=== PATIENT | male | born 1990 | race African-American/Black ===

== ENCOUNTER 2016-11-08 00:51 | Emergency (ER) | payer OTHER ==
[~2016-11-08] VITALS: Ht 180.3 cm; Wt 122.5 kg
[2016-11-08 01:05] VITALS: BP 134/77
[2016-11-08] MEDS ORDERED: IV NORMAL SALINE 1000ML BAG 1,000 ML IV ONE (01:15)
[2016-11-08] MEDS ORDERED: ONDANSETRON PF 4 MG/2 ML VIAL. IV ONE (01:15)
[2016-11-08 01:38] LABS: CALCIUM 9.7 mg/dL (8.5-10.1); CREATININE 1.1 mg/dL (0.7-1.3); GFR 97.2; POTASSIUM 4.2 mmol/L (3.5-5.1)
[2016-11-08] MEDS ORDERED: ONDA4TAB10 SL (02:11)
--- NOTE | 2016-11-08 02:11 | PHYS DOC ---
Past Medical History Past Medical History: Asthma Past Surgical History: No Surgical History Alcohol Use: Occasionally Drug Use: None Adult General Chief Complaint Chief Complaint: NAUSEA/VOMITING/DIARRHA HPI HPI Patient is a 26 year old male who presents with vomiting & diarrhea. The patient reports onset of symptoms this evening. He states he has had 6 episodes of vomiting & too many episodes of diarrhea to count. He reports generalized abdominal discomfort. Denies fevers/chills, hematemesis, hematochezia/melena, dysuria/hematuria. No abdominal surgeries. Other family members have had similar symptoms. Does not have a PCP. Review of Systems Review of Systems Constitutional: Denies fever or chills Eyes: Denies change in visual acuity HENT: Denies nasal congestion or sore throat Respiratory: Denies cough or shortness of breath Cardiovascular: Denies chest pain or edema GI: Denies abdominal pain, nausea, vomiting, bloody stools or diarrhea : Denies dysuria or hematuria Musculoskeletal: Denies back pain or joint pain Integument: Denies rash or skin lesions Neurologic: Denies headache, focal weakness or sensory changes Current Medications Current Medications Current Medications Medications (Trade) Dose Ordered Sig/Aileen Start Time Stop Time Status Last Admin Dose Admin Ondansetron HCl (Zofran) 4 mg 1X ONCE 11/08/16 01:15 11/08/16 01:16 DC 11/08/16 01:20 4 MG Sodium Chloride 1,000 ml @ 1,000 mls/hr 1X ONCE 11/08/16 01:15 11/08/16 02:14 DC 11/08/16 01:15 1,000 MLS/HR Allergies Allergies Allergies Coded Allergies Type Severity Reaction Last Updated Verified cyclobenzaprine Allergy Unknown 11/08/16 Yes Physical Exam Physical Exam Constitutional: obese, no acute distress, non-toxic appearance. HENT: Normocephalic, atraumatic, bilateral external ears normal, oropharynx dry , nose normal. Eyes: conjunctiva normal, no discharge. Neck: supple, no stridor. Cardiovascular: RRR, no murmurs, no edema. Lungs & Thorax: LCTAB, no wheezing, no respiratory distress. Abdomen: hyperactive bowel sounds, soft, no focal tenderness with palpation, no masses or pulsatile masses, no rebound/guarding, nondistended. Skin: Warm, dry, no erythema, no rash. Back: No CVA tenderness. Extremities: No tenderness, no edema. Neurologic: Alert and oriented X 3, no focal deficits noted. Psychologic: Affect normal, judgement normal, mood normal. Current Patient Data Vital Signs Vital Signs Date Time Temp Pulse Resp B/P (MAP) Pulse Ox O2 Delivery O2 Flow Rate FiO2 11/08/16 01:05 99.3 90 22 134/77 (96) 99 Room Air 99.3 Lab Values Laboratory Tests Test 11/08/16 01:15 Sodium Level 139 mmol/L (136-145) Potassium Level 4.2 mmol/L (3.5-5.1) Chloride Level 103 mmol/L (98-107) Carbon Dioxide Level 28 mmol/L (21-32) Anion Gap 8 (6-14) Blood Urea Nitrogen 17 mg/dL (8-26) Creatinine 1.1 mg/dL (0.7-1.3) Estimated GFR (Cockcroft-Gault) 97.2 Glucose Level 100 mg/dL (70-99) H Calcium Level 9.7 mg/dL (8.5-10.1) Laboratory Tests 11/08/16 01:15 EKG EKG [] Radiology/Procedures Radiology/Procedures [] Course & Med Decision Making Course & Med Decision Making Pertinent Labs and Imaging studies reviewed. (See chart for details) Patient presents with vomiting & diarrhea, nontender abdomen, stable vitals. Gave IV fluids & zofran. BMP shows no significant abnormality. Recommend supportive care for viral illness - rest, PO hydration with clear liquids, tylenol or ibuprofen for pain or fever, zofran for nausea, immodium for diarrhea. Follow up as needed with primary care if not improving in 2-3 days. Return to the emergency department for high fever, severe pain, uncontrolled vomiting, any otherwise worsening condition. [] Dragon Disclaimer Dragon Disclaimer This electronic medical record was generated, in whole or in part, using a voice recognition dictation system. Departure Departure Impression: Primary Impression: Nausea vomiting and diarrhea Disposition: HOME, SELF-CARE Condition: STABLE Referrals: NO PCP (PCP) MARTHA ABURTO MD Patient Instructions: Diarrhea, [id number], Nausea and Vomiting, [id number] Additional Instructions: You were seen in the emergency department today for vomiting and diarrhea. Labs were normal here. This is likely caused by a virus and should improve within the next few days. Take Zofran for nausea. Take Imodium as needed for diarrhea. You can buy this [id number]. Drink small sips of clear liquids like water or Gatorade to stay hydrated. Follow-up with primary care doctor in 2-3 days. Return to the emergency department for severe abdominal pain, uncontrolled vomiting, any otherwise worsening condition. Scripts Ondansetron (ZOFRAN ODT) 4 Mg Tab.rapdis 1 TAB SL Q8HRS Y for NAUSEA, #10 TAB Prov: EMIR PLUNKETT MD 11/08/16 EMIR PLUNKETT MD Nov 08, 2016 02:11
[2016-11-08] MEDS ORDERED: METR500T PO (18:35)
[2016-11-08] MEDS ORDERED: PROM25TA10 PO (18:35)
[2016-11-08] MEDS ORDERED: DIPH1TAB PO (18:35)
[2016-11-08] MEDS ORDERED: CIPR500T94 PO (18:35)
== END 2016-11-08 02:29 | disposition home or self-care (01) ==
LOC: ER 00:51
DX: R11.2 Nausea with vomiting, unspecified (principal); R19.7 Diarrhea, unspecified; R10.84 Generalized abdominal pain; J45.909 Unspecified asthma, uncomplicated; Z88.8 Allergy status to other drugs, medicaments and biological substances
CPT/HCPCS: 36415; 80048; 96361; 96374; 99284; J2405; J7030

== ENCOUNTER 2016-11-08 14:37 | Emergency (ER) | payer OTHER ==
[~2016-11-08] VITALS: Ht 180.3 cm; Wt 122.5 kg
[~2016-11-08 14:37] MED LIST: ONDA4TAB10 SL
[2016-11-08] MEDS ORDERED: PROMETHAZINE 12.5 MG in IV NORMAL SALINE 50ML 50 ML IV ONE (16:00)
[2016-11-08] MEDS ORDERED: ONDANSETRON PF 4 MG/2 ML VIAL. IV ONE ×2 (16:00→18:15)
[2016-11-08] MEDS ORDERED: IV NORMAL SALINE 1000ML BAG 1,000 ML IV ONE (16:00)
[2016-11-08] MEDS ORDERED: IOHEXOL 300 MG/ML 75 ML VIAL IV ONE (16:00)
[2016-11-08] MEDS ORDERED: CONTRAST GIVEN MC PRN (16:15)
[2016-11-08 16:18] LABS: BASO % 0 % (0-3); EOS % 0 % (0-3); HEMATOCRIT 42.6 % (39.0-53.0); HEMOGLOBIN 14.5 g/dL (13.0-17.5); LYMPH % 10 % (24-48); MEAN CORPUSCULAR HEMOGLOBIN 29 pg (25-35); MEAN CORPUSCULAR HGB CONC 34 g/dL (31-37); MEAN CORPUSCULAR VOLUME 86 fL (79-100); MONO % 10 % (0-9); NEUT % 80 % (31-73); PLATELET COUNT 327 x10^3/uL (140-400); RED BLOOD COUNT 4.94 x10^6/uL (4.30-5.70); WHITE BLOOD COUNT 10.6 x10^3/uL (4.0-11.0)
[2016-11-08 16:40] LABS: CALCIUM 9.2 mg/dL (8.5-10.1); GFR 108.5; POTASSIUM 3.9 mmol/L (3.5-5.1)
[2016-11-08 16:46] LABS: ALBUMIN 3.6 g/dL (3.4-5.0); TOTAL BILIRUBIN 0.7 mg/dL (0.2-1.0); TOTAL PROTEIN 7.2 g/dL (6.4-8.2)
--- NOTE | 2016-11-08 17:02 | RAD ---
Indication abdominal pain nausea vomiting and diarrhea. Axial images through the abdomen and pelvis were obtained. Approximately 75 cc of Omnipaque 300 was administered intravenously. No oral contrast was administered. No prior CT imaging of the abdomen or pelvis is available. The lung bases are clear. The liver and spleen appear unremarkable. The gallbladder appears grossly normal. No pancreatic abnormality is seen. There is a 1.5 cm mass in the midportion of the right kidney. There is an additional low-density 1 cm mass medially in the right kidney. These are not not fully characterized on this exam but likely reflect cysts. They could be further characterized with nonemergent ultrasound. No adrenal pathology is seen and the left kidney appears unremarkable. There is slight dilatation of small bowel loops in the right lower quadrant. This is a nonspecific finding. It could reflect enteritis. High-grade mechanical obstruction is not suggested on this exam. The appendix is not definitely seen in the right lower quadrant but secondary signs to suggest appendicitis are not apparent. A definite acute finding in the pelvis is not seen. There are scattered lymph nodes in the mesentery and retroperitoneum which are nonspecific but likely incidental. IMPRESSION: Mild dilatation of small bowel loops. This is nonspecific but could reflect enteritis. No additional definite significant finding seen. Small masses in the right kidney probably reflecting cysts.
[2016-11-08 17:32] LABS: BILIRUBIN,URINE NEGATIVE (NEG); GLUCOSE,URINE NEGATIVE (NEG); NITRITE,URINE NEGATIVE (NEG); PROTEIN,URINE NEGATIVE (NEG-TRACE); UROBILINOGEN,URINE 0.2 mg/dL (0.2 mg/dL)
[2016-11-08 17:38] LABS: BARBITURATES NEG (NEG); BENZODIAZEPINES NEG (NEG); CANNABINOIDS NEG (NEG); COCAINE NEG (NEG); METHADONE NEG (NEG); OPIATES NEG (NEG); PHENCYCLIDINE NEG (NEG)
[2016-11-08 17:40] LABS: BACTERIA,URINE 0 /HPF (0-FEW); RBC,URINE OCC /HPF (0-2); WBC,URINE OCC /HPF (0-4)
[2016-11-08 17:41] LABS: SQUAMOUS EPITHELIAL CELL,UR OCC /LPF
[2016-11-08 18:30] VITALS: BP 121/82
[2016-11-08] MEDS ORDERED: METR500T PO (18:35)
[2016-11-08] MEDS ORDERED: PROM25TA10 PO (18:35)
[2016-11-08] MEDS ORDERED: CIPR500T94 PO (18:35)
[2016-11-08] MEDS ORDERED: DIPH1TAB PO (18:35)
--- NOTE | 2016-11-08 18:35 | PHYS DOC ---
Past Medical History Past Medical History: Asthma Past Surgical History: No Surgical History Alcohol Use: Occasionally Drug Use: None Adult General Chief Complaint Chief Complaint: ABDOMINAL PAIN HPI HPI Patient is a 26 year old male with history of asthma who presents today with diarrhea nausea and vomiting that began yesterday. Patient is also complaining of mild mid epigastric abdominal pain. Patient states he was seen in the ED early this morning. He states he was discharged around 2 AM. He states he was given a prescription for Zofran which he did not fill it. Patient is in the ED with the significant other who states she gave patient a pediatric dose of nausea medicine. Patient states he has continued to vomit and have diarrhea since last night. Review of Systems Review of Systems Constitutional: Denies fever or chills [] Eyes: Denies change in visual acuity, redness, or eye pain [] HENT: Denies nasal congestion or sore throat [] Respiratory: Denies cough or shortness of breath [] Cardiovascular: No additional information not addressed in HPI [] GI: mid epigastric, abdominal pain, nausea, vomiting, and diarrhea [] : Denies dysuria or hematuria [] Musculoskeletal: Denies back pain or joint pain [] Integument: Denies rash or skin lesions [] Neurologic: Denies headache, focal weakness or sensory changes [] Endocrine: Denies polyuria or polydipsia [] Current Medications Current Medications Current Medications Medications (Trade) Dose Ordered Sig/Aileen Start Time Stop Time Status Last Admin Dose Admin Info (Do NOT chart on this entry -- for MONITORING) 1 each PRN DAILY PRN 11/08/16 16:15 11/08/16 18:48 DC Iohexol (Omnipaque 300 Mg/ml) 75 ml 1X ONCE 11/08/16 16:00 11/08/16 16:01 DC 11/08/16 16:15 75 ML Ondansetron HCl (Zofran) 4 mg 1X ONCE 11/08/16 18:15 11/08/16 18:16 DC 11/08/16 18:27 4 MG Promethazine HCl 12.5 mg/Sodium Chloride 50.5 ml @ 101 mls/hr 1X ONCE 11/08/16 16:00 11/08/16 16:29 DC 11/08/16 16:09 101 MLS/HR Sodium Chloride 1,000 ml @ 1,000 mls/hr 1X ONCE 11/08/16 16:00 11/08/16 16:59 DC 11/08/16 16:08 1,000 MLS/HR Allergies Allergies Allergies Coded Allergies Type Severity Reaction Last Updated Verified cyclobenzaprine Allergy Unknown 11/08/16 Yes Physical Exam Physical Exam Constitutional: Well developed, well nourished, no acute distress, non-toxic appearance. [] HENT: Normocephalic, atraumatic, bilateral external ears normal, oropharynx moist, no oral exudates, nose normal. [] Eyes: PERRLA, EOMI, conjunctiva normal, no discharge. [] Neck: Normal range of motion, no tenderness, supple, no stridor. [] Cardiovascular:Heart rate regular rhythm, no murmur [] Lungs & Thorax: Bilateral breath sounds clear to auscultation [] Abdomen: Rounded abdomen. Bowel sounds normal, soft, no tenderness, no masses, no pulsatile masses. [] Skin: Warm, dry, no erythema, no rash. [] Back: No tenderness, no CVA tenderness. [] Extremities: No tenderness, no cyanosis, no clubbing, ROM intact, no edema. [] Neurologic: Alert and oriented X 3, normal motor function, normal sensory function, no focal deficits noted. [] Psychologic: Affect normal, judgement normal, mood normal. [] Current Patient Data Vital Signs Vital Signs Date Time Temp Pulse Resp B/P (MAP) Pulse Ox O2 Delivery O2 Flow Rate FiO2 11/08/16 18:30 85 18 121/82 (95) 96 Room Air 11/08/16 15:11 99.3 99.3 Lab Values Laboratory Tests Test 11/08/16 16:04 11/08/16 17:15 White Blood Count 10.6 x10^3/uL (4.0-11.0) Red Blood Count 4.94 x10^6/uL (4.30-5.70) Hemoglobin 14.5 g/dL (13.0-17.5) Hematocrit 42.6 % (39.0-53.0) Mean Corpuscular Volume 86 fL (79-100) Mean Corpuscular Hemoglobin 29 pg (25-35) Mean Corpuscular Hemoglobin Concent 34 g/dL (31-37) Red Cell Distribution Width 13.0 % (11.5-14.5) Platelet Count 327 x10^3/uL (140-400) Neutrophils (%) (Auto) 80 % (31-73) H Lymphocytes (%) (Auto) 10 % (24-48) L Monocytes (%) (Auto) 10 % (0-9) H Eosinophils (%) (Auto) 0 % (0-3) Basophils (%) (Auto) 0 % (0-3) Neutrophils # (Auto) 8.5 x10^3uL (1.8-7.7) H Lymphocytes # (Auto) 1.0 x10^3/uL (1.0-4.8) Monocytes # (Auto) 1.0 x10^3/uL (0.0-1.1) Eosinophils # (Auto) 0.0 x10^3/uL (0.0-0.7) Basophils # (Auto) 0.0 x10^3/uL (0.0-0.2) Sodium Level 140 mmol/L (136-145) Potassium Level 3.9 mmol/L (3.5-5.1) Chloride Level 104 mmol/L (98-107) Carbon Dioxide Level 28 mmol/L (21-32) Anion Gap 8 (6-14) Blood Urea Nitrogen 14 mg/dL (8-26) Creatinine 1.0 mg/dL (0.7-1.3) Estimated GFR (Cockcroft-Gault) 108.5 BUN/Creatinine Ratio 14 (6-20) Glucose Level 88 mg/dL (70-99) Calcium Level 9.2 mg/dL (8.5-10.1) Total Bilirubin 0.7 mg/dL (0.2-1.0) Aspartate Amino Transferase (AST) 24 U/L (15-37) Alanine Aminotransferase (ALT) 44 U/L (16-63) Alkaline Phosphatase 75 U/L (46-116) Total Protein 7.2 g/dL (6.4-8.2) Albumin 3.6 g/dL (3.4-5.0) Albumin/Globulin Ratio 1.0 (1.0-1.7) Lipase 96 U/L (73-393) Ethyl Alcohol Level < 10 mg/dL (0-10) Urine Collection Type Unknown Urine Color Yellow Urine Clarity Clear Urine pH 6.0 Urine Specific [place] >=1.030 Urine Protein Negative mg/dL (NEG-TRACE) Urine Glucose (UA) Negative mg/dL (NEG) Urine Ketones (Stick) Negative mg/dL (NEG) Urine Blood Trace (NEG) Urine Nitrite Negative (NEG) Urine Bilirubin Negative (NEG) Urine Urobilinogen Dipstick 0.2 mg/dL (0.2 mg/dL) Urine Leukocyte Esterase Negative (NEG) Urine RBC Occ /HPF (0-2) Urine WBC Occ /HPF (0-4) Urine Squamous Epithelial Cells Occ /LPF Urine Bacteria 0 /HPF (0-FEW) Urine Mucus Slight /LPF Urine Opiates Screen Neg (NEG) Urine Methadone Screen Neg (NEG) Urine Barbiturates Neg (NEG) Urine Phencyclidine Screen Neg (NEG) Urine Amphetamine/Methamphetamine Neg (NEG) Urine Benzodiazepines Screen Neg (NEG) Urine Cocaine Screen Neg (NEG) Urine Cannabinoids Screen Neg (NEG) Urine Ethyl Alcohol Neg (NEG) Laboratory Tests 11/08/16 16:04 Laboratory Tests 11/08/16 16:04 EKG EKG [] Radiology/Procedures Radiology/Procedures [] Course & Med Decision Making Course & Med Decision Making Pertinent Labs and Imaging studies reviewed. (See chart for details) This is a 26-year-old male patient who presents to the ED with nausea vomiting diarrhea and midepigastric abdominal pain since yesterday. He was seen in the ED of these this morning and discharged with Zofran. Patient states he has continued to have symptoms. He did not fill the prescription for Zofran. He states the girlfriend and interactive dose of nausea medicine. CBC with normal WBC. CMP would not acute findings, drug screen is negative. Urine analysis is negative for infection but shows patient is dehydrated. CT of the abdomen and pelvic is positive for enteritis. I offered patient admission to the hospital considering he is returning with the same symptoms. He declined admission. He was hydrated in the ED. He was discharged with Cipro Flagyl promethazine and he also has a prescription for Zofran. We did provide him a funeral driver for follow-up. I gave him a prescription for Lomotil. Stool was sent to lab for culture. He is to follow-up with his own doctor or the provided doctor as soon as he can. Instructed him to push fluids and maintain good hand hygiene at home. Dragon Disclaimer Dragon Disclaimer This electronic medical record was generated, in whole or in part, using a voice recognition dictation system. Departure Departure Impression: Primary Impression: Enteritis Disposition: 01 HOME, SELF-CARE Condition: STABLE Referrals: NO PCP (PCP) JILLIAN MILLER MD Follow-up with your primary care doctor or the provided funeral driver in 1 to 3 days Patient Instructions: Diarrhea, Nausea and Vomiting Additional Instructions: You were seen with nausea vomiting and diarrhea. We prescribed antibiotics to you. Take them as ordered. Take the nausea and vomiting medicines as needed. Take the diarrhea medicine, Lomotil as needed. Push fluids and maintain very good hand hygiene at home. We provided you a doctor for follow-up, try and call them as soon you can and set up a follow-up appointment or you can call your primary care doctor. Come back to the emergency room if symptoms worsen. Scripts Promethazine Hcl (PROMETHAZINE HCL) 25 Mg Tablet 1 TAB PO PRN Q6HRS, #20 TAB Prov: TAI LAZO APRN 11/08/17 Diphenoxylate Hcl/Atropine (LOMOTIL TABLET) 1 Each Tablet 1 TAB PO TID Y for DIARRHEA, #30 TAB Prov: TAI LAZO APRN 11/08/17 Ciprofloxacin Hcl (CIPRO) 500 Mg Tablet 1 TAB PO BID, #20 TAB Prov: TAI LAZO APRN 6/5/17 Metronidazole (FLAGYL) 500 Mg Tablet 500 MG PO TID, #30 TAB Prov: TAI LAZO APRN 17 TAI LAZO APRN Nov 08, 2016 18:35
== END 2016-11-08 18:47 | disposition home or self-care (01) ==
LOC: ER 14:37
DX: K52.9 Noninfective gastroenteritis and colitis, unspecified (principal); J45.909 Unspecified asthma, uncomplicated; Z88.8 Allergy status to other drugs, medicaments and biological substances
CPT/HCPCS: 36415; 74177; 80053; 80305; 80320; 81001; 83690; 85027; 96365; 96375; 96376; 99285; J2405; J2550; J7030; Q9967; G0480; G0481

== ENCOUNTER → 2016-12-29 | Outpatient (CLI) | payer OTHER ==
[~2016-12-29] MED LIST changes: +CIPR500T94 PO; +DIPH1TAB PO; +METR500T PO; +PROM25TA10 PO
--- NOTE | 2016-12-29 14:58 | KCIC ---
RENAL SONOGRAPHY INDICATIONS: right kidney nodule seen on CT study. COMPARISON: None currently available. Previous study was performed at [facility] dated November 08, 2016. FINDINGS: Longitudinal and AP and transverse dimensions of the right kidney are 12.0 cm and 5.4 cm and 6.9 cm respectively. The longitudinal and AP and transverse dimensions of the left kidney are 11.5 cm and 7.0 cm and 5.1 cm respectively. There is a cyst of the mid aspect of the right kidney measuring 15 mm. There is a cyst of the lower pole of the right kidney measuring 16 mm. No left renal mass is seen. No hydronephrosis or perinephric fluid collection is seen on either side. The urinary bladder is mildly distended. No intraluminal echodensities or masses are seen. IMPRESSION: Right renal cysts. No hydronephrosis. Electronically signed by: Gideon Lindo MD (12/29/2016 2:55 PM) [id number]
== END | disposition home or self-care (01) ==
LOC: KCIC US 09:54
PROVIDERS: ATTEND Internal Medicine Gastroenterology
DX: N28.1 Cyst of kidney, acquired (principal)
CPT/HCPCS: 76770

== ENCOUNTER 2018-04-03 09:47 | Emergency (ER) | payer OTHER ==
[~2018-04-03] VITALS: Ht 180.3 cm; Wt 127.0 kg
[2018-04-03] MEDS ORDERED: ONDANSETRON PF 4 MG/2 ML VIAL. IV ONE (10:30)
[2018-04-03] MEDS ORDERED: FAMOTIDINE 20 MG/2 ML VIAL IVP ONE (10:30)
[2018-04-03] MEDS ORDERED: IV NORMAL SALINE 1000ML BAG 1,000 ML IV ONE ×2 (10:30→11:45)
[2018-04-03 10:43] LABS: BILIRUBIN,URINE NEGATIVE (NEG); CLARITY,URINE CLEAR; COLOR,URINE YELLOW; NITRITE,URINE NEGATIVE (NEG); PROTEIN,URINE NEGATIVE (NEG-TRACE)
[2018-04-03] MEDS ORDERED: ACETAMINOPHEN 500 MG TABLET PO ONE (10:45)
[2018-04-03 10:46] LABS: BARBITURATES NEG (NEG); BENZODIAZEPINES NEG (NEG); CANNABINOIDS NEG (NEG); COCAINE NEG (NEG); METHADONE NEG (NEG); OPIATES NEG (NEG); PHENCYCLIDINE NEG (NEG)
[2018-04-03 10:47] LABS: AMPHETAMINE/METHAMPHETAMINE NEG (NEG)
[2018-04-03 11:09] LABS: BACTERIA,URINE 0 /HPF (0-FEW); SQUAMOUS EPITHELIAL CELL,UR OCC /LPF; WBC,URINE 0 /HPF (0-4)
--- NOTE | 2018-04-03 11:11 | RAD ---
History: Abdominal pain and constipation since previous day. Comparison: CT abdomen pelvis November 08, 2016. Findings: AP portable supine abdomen radiograph. Bowel gas pattern is nonspecific, without evidence of obstruction. Moderate colonic stool is seen. No convincing calcification is seen over either renal shadow. Impression: 1. Nonspecific bowel gas pattern. 2. Moderate colonic stool. Electronically signed by: Orlando Awad MD (04/03/2018 11:08 AM) [facility]
[2018-04-03 11:19] LABS: BASO % 0 % (0-3); EOS % 0 % (0-3); HEMATOCRIT 44.9 % (39.0-53.0); HEMOGLOBIN 15.3 g/dL (13.0-17.5); LYMPH # 1.2 x10^3/uL (1.0-4.8); LYMPH % 5 % (24-48); MEAN CORPUSCULAR HEMOGLOBIN 30 pg (25-35); MEAN CORPUSCULAR HGB CONC 34 g/dL (31-37); MEAN CORPUSCULAR VOLUME 87 fL (79-100); MONO # 1.9 x10^3/uL (0.0-1.1); MONO % 9 % (0-9); NEUT # 19.3 x10^3uL (1.8-7.7); NEUT % 86 % (31-73); PLATELET COUNT 351 x10^3/uL (140-400); RED BLOOD COUNT 5.15 x10^6/uL (4.30-5.70); RED CELL DISTRIBUTION WIDTH 13.1 % (11.5-14.5); WHITE BLOOD COUNT 22.5 x10^3/uL (4.0-11.0)
[2018-04-03 11:27] LABS: CALCIUM 9.5 mg/dL (8.5-10.1); CREATININE 1.1 mg/dL (0.7-1.3); GFR 95.8; POTASSIUM 3.9 mmol/L (3.5-5.1)
--- NOTE | 2018-04-03 11:32 | PHYS DOC ---
Past Medical History Past Medical History: No Pertinent History Past Surgical History: No Surgical History Alcohol Use: None Drug Use: None Adult General Chief Complaint Chief Complaint: ABDOMINAL PAIN HPI HPI Headache Patient is a 28 year old male with no significant medical history who presents today complaining of 2 out of 10 epigastric abdominal pain with nausea vomiting and subjective fevers since 3 AM this morning. Patient states he has had similar symptoms before when he was constipated. He states his symptoms are worse when he tries to use the bathroom. Denies any fever. Review of Systems Review of Systems Constitutional: Reports subjective fevers Eyes: Denies change in visual acuity, redness, or eye pain [] HENT: Denies nasal congestion or sore throat [] Respiratory: Denies cough or shortness of breath [] Cardiovascular: No additional information not addressed in HPI [] GI: Reports epigastric abdominal pain with nausea and vomiting, denies bloody stools or diarrhea [] : Denies dysuria or hematuria [] Musculoskeletal: Denies back pain or joint pain [] Integument: Denies rash or skin lesions [] Neurologic: Denies headache, focal weakness or sensory changes [] All other systems were reviewed and found to be within normal limits, except as documented in this note. Current Medications Current Medications Current Medications Medications (Trade) Dose Ordered Sig/Aileen Start Time Stop Time Status Last Admin Dose Admin Acetaminophen (Tylenol) 1,000 mg 1X ONCE 04/03/18 10:45 04/03/18 10:46 DC 04/03/18 11:02 1,000 MG Famotidine (Pepcid Vial) 20 mg 1X ONCE 04/03/18 10:30 04/03/18 10:31 DC 04/03/18 11:02 20 MG Info (CONTRAST GIVEN -- Rx MONITORING) 1 each PRN DAILY PRN 04/03/18 11:45 04/03/18 16:05 DC Iohexol (Omnipaque 300 Mg/ml) 75 ml 1X ONCE 04/03/18 11:45 04/03/18 11:46 DC 04/03/18 11:50 75 ML Ondansetron HCl (Zofran) 4 mg 1X ONCE 04/03/18 10:30 04/03/18 10:31 DC 04/03/18 11:02 4 MG Sodium Chloride 1,000 ml @ 1,000 mls/hr 1X ONCE 04/03/18 11:45 04/03/18 12:44 DC Allergies Allergies Allergies Coded Allergies Type Severity Reaction Last Updated Verified cyclobenzaprine Allergy Intermediate 04/03/18 Yes Physical Exam Physical Exam Constitutional: Well developed, well nourished, no acute distress, non-toxic appearance. [] HENT: Normocephalic, atraumatic, bilateral external ears normal, oropharynx moist, no oral exudates, nose normal. [] Eyes: PERRLA, EOMI, conjunctiva normal, no discharge. [] Neck: Normal range of motion, no tenderness, supple, no stridor. [] Cardiovascular:Heart rate regular rhythm, no murmur [] Lungs & Thorax: Bilateral breath sounds clear to auscultation [] Abdomen: Bowel sounds normal, soft, no tenderness, no masses, no pulsatile masses. [] Skin: Warm, dry, no erythema, no rash. [] Back: No tenderness, no CVA tenderness. [] Extremities: No tenderness, no cyanosis, no clubbing, ROM intact, no edema. [] Neurologic: Alert and oriented X 3, normal motor function, normal sensory function, no focal deficits noted. [] Psychologic: Affect normal, judgement normal, mood normal. [] Current Patient Data Vital Signs Vital Signs Date Time Temp Pulse Resp B/P (MAP) Pulse Ox O2 Delivery O2 Flow Rate FiO2 04/03/18 16:05 98.1 92 120/57 (78) 98 Room Air 98.1 04/03/18 09:59 18 Lab Values Laboratory Tests Test 04/03/18 10:30 04/03/18 11:10 04/03/18 11:20 Urine Collection Type Unknown Urine Color Yellow Urine Clarity Clear Urine pH 7.0 Urine Specific [place] >=1.030 Urine Protein Negative mg/dL (NEG-TRACE) Urine Glucose (UA) Negative mg/dL (NEG) Urine Ketones (Stick) Negative mg/dL (NEG) Urine Blood Trace (NEG) Urine Nitrite Negative (NEG) Urine Bilirubin Negative (NEG) Urine Urobilinogen Dipstick 1.0 mg/dL (0.2 mg/dL) Urine Leukocyte Esterase Negative (NEG) Urine RBC 6-10 /HPF (0-2) Urine WBC 0 /HPF (0-4) Urine Squamous Epithelial Cells Occ /LPF Urine Bacteria 0 /HPF (0-FEW) Urine Mucus Mod /LPF Urine Opiates Screen Neg (NEG) Urine Methadone Screen Neg (NEG) Urine Barbiturates Neg (NEG) Urine Phencyclidine Screen Neg (NEG) Urine Amphetamine/Methamphetamine Neg (NEG) Urine Benzodiazepines Screen Neg (NEG) Urine Cocaine Screen Neg (NEG) Urine Cannabinoids Screen Neg (NEG) Urine Ethyl Alcohol Neg (NEG) White Blood Count 22.5 x10^3/uL (4.0-11.0) H Red Blood Count 5.15 x10^6/uL (4.30-5.70) Hemoglobin 15.3 g/dL (13.0-17.5) Hematocrit 44.9 % (39.0-53.0) Mean Corpuscular Volume 87 fL (79-100) Mean Corpuscular Hemoglobin 30 pg (25-35) Mean Corpuscular Hemoglobin Concent 34 g/dL (31-37) Red Cell Distribution Width 13.1 % (11.5-14.5) Platelet Count 351 x10^3/uL (140-400) Neutrophils (%) (Auto) 86 % (31-73) H Lymphocytes (%) (Auto) 5 % (24-48) L Monocytes (%) (Auto) 9 % (0-9) Eosinophils (%) (Auto) 0 % (0-3) Basophils (%) (Auto) 0 % (0-3) Neutrophils # (Auto) 19.3 x10^3uL (1.8-7.7) H Lymphocytes # (Auto) 1.2 x10^3/uL (1.0-4.8) Monocytes # (Auto) 1.9 x10^3/uL (0.0-1.1) H Eosinophils # (Auto) 0.0 x10^3/uL (0.0-0.7) Basophils # (Auto) 0.0 x10^3/uL (0.0-0.2) Segmented Neutrophils % 85 % (35-66) H Band Neutrophils % 1 % (0-9) Lymphocytes % 10 % (24-48) L Monocytes % 4 % (0-10) Platelet Estimate Adequate (ADEQUATE) Sodium Level 139 mmol/L (136-145) Potassium Level 3.9 mmol/L (3.5-5.1) Chloride Level 103 mmol/L (98-107) Carbon Dioxide Level 29 mmol/L (21-32) Anion Gap 7 (6-14) Blood Urea Nitrogen 13 mg/dL (8-26) Creatinine 1.1 mg/dL (0.7-1.3) Estimated GFR (Cockcroft-Gault) 95.8 BUN/Creatinine Ratio 12 (6-20) Glucose Level 94 mg/dL (70-99) Lactic Acid Level 1.4 mmol/L (0.4-2.0) Calcium Level 9.5 mg/dL (8.5-10.1) Total Bilirubin 0.7 mg/dL (0.2-1.0) Aspartate Amino Transferase (AST) 15 U/L (15-37) Alanine Aminotransferase (ALT) 32 U/L (16-63) Alkaline Phosphatase 77 U/L (46-116) Total Protein 8.2 g/dL (6.4-8.2) Albumin 3.8 g/dL (3.4-5.0) Albumin/Globulin Ratio 0.9 (1.0-1.7) L Lipase 116 U/L (73-393) Ethyl Alcohol Level < 10 mg/dL (0-10) Influenza Type A Antigen Negative (NEGATIVE) Influenza Type B Antigen Negative (NEGATIVE) Laboratory Tests 04/03/18 11:10 Laboratory Tests 04/03/18 11:10 EKG EKG [] Radiology/Procedures Radiology/Procedures []PROCEDURE: CT ABD PELV W/ IV CONTRST ONLY CT ABD PELV W/ IV CONTRST ONLY Indication: ABD PAIN, N/.V. IV OMNI 300 75 MLS. PREVIOUS Exposure: One or more of the following individualized dose reduction techniques were utilized for this examination: 1. Automated exposure control 2. Adjustment of the mA and/or kV according to patient size 3. Use of iterative reconstruction technique. Comparison: November 08, 2016 Contrast: Intravenous contrast was given. No oral contrast per request. FINDINGS: Lower thorax: Lung bases are clear. Liver: Unremarkable Spleen: Unremarkable, small accessory splenule Pancreas: Unremarkable Adrenals: No evidence of mass. Kidneys: Small hypodense lesions of both kidneys appear roughly similar as prior study, measuring up to 12 mm on the right and most compatible with cysts. Urinary tracts: No hydronephrosis. Gallbladder: No calcified stone Lymph nodes: No significant enlargement Vessels: Aorta is nonaneurysmal. GI tract: No evidence of acute colitis. No evidence of bowel obstruction. Appendix is probably visualized and unremarkable. Reproductive organs:No evidence of mass. Urinary bladder: Unremarkable. Peritoneum: No evidence of pneumoperitoneum. No free fluid. Abdominal wall:Unremarkable Spine: Vertebral body height and alignment are intact. Bones: No destructive process identified. There is some soft tissue density in the left breast region, not seen on the right, but this could just be positional asymmetry. IMPRESSION: 1. No acute findings in the abdomen or pelvis. 2. No small renal lesions are essentially unchanged and most likely cysts. 3. Asymmetric density in the left breast tissue is partially visualized. This is not seen on the right, which could just be due to positional asymmetry, but correlate clinically for mass. Electronically signed by: Orlando Brizuela MD (04/03/2018 12:23 PM) [id number] DICTATED and SIGNED BY: ORLANDO BRIZUELA MD DATE: 04/03/18 1211 Course & Med Decision Making Course & Med Decision Making Pertinent Labs and Imaging studies reviewed. (See chart for details) This is a 28-year-old male patient presenting to the ED today with complaints of nausea vomiting abdominal pain and epigastric pain that began this morning at 3 AM. On arrival to the ED patient has a temperature of 99.6. Heart rate in the 90s. WBC 22.5 with a left shift. Blood cultures and lactic ordered. Lactic is normal, CMP is normal. Negative for influenza A or B. KUB noted for constipation. CT of the abdomen and pelvic was negative for any acute findings but noted for-Asymmetric density in the left breast tissue is partially visualized. This is not seen on the right, which could just be due to positional asymmetry, but correlate clinically for mass. Clinically this is likely positional. No palpable masses. Patient was given IV fluids nausea medicine. Feeling better. Discharged with Zofran. Instructed to push fluids. Follow-up with primary care doctor or GI doctor provided. Tylenol/ Motrin for pain or fever. Labs discussed with Dr. Kwon prior to d/c Staff Physician Addendum: I was working in the ER during the course of this patient's visit. I was available for consultation as needed, but I was not directly involved in the care of this patient. Did review the results of the labs also, the patient had been vomiting the CT scan was negative acute. Dragon Disclaimer Dragon Disclaimer This electronic medical record was generated, in whole or in part, using a voice recognition dictation system. Departure Departure Impression: Primary Impression: Epigastric pain Additional Impressions: Nausea and vomiting Leukocytosis Disposition: 01 HOME, SELF-CARE Condition: STABLE Referrals: NO PCP (PCP) JILLIAN MILLER MD follow up next week Patient Instructions: Abdominal Pain, Leukocytosis, Nausea and Vomiting, Easy- to-Read Additional Instructions: You were evaluated in the emergency room for nausea vomiting and abdominal pain. Push fluids. Take Tylenol or Motrin for pain or fever. Take Zofran as needed for nausea vomiting. Maintain good hand hygiene. Follow-up with your own doctor in the next 7 days. Come back to the ED at any point symptoms worsen. Scripts Dicyclomine Hcl (DICYCLOMINE HCL) 20 Mg Tablet 1 TAB PO TID, #30 TAB 1 Refill Prov: TAI LAZO APRN 04/03/18 Ondansetron (ZOFRAN ODT) 4 Mg Tab.rapdis 1 TAB SL Q8HRS, #15 TAB Prov: TAI LAZO APRN 04/03/18 Problem Qualifiers Additional Impressions: Nausea and vomiting Vomiting type: unspecified Vomiting Intractability: unspecified Qualified Codes: R11.2 - Nausea with vomiting, unspecified Leukocytosis Leukocytosis type: unspecified Qualified Codes: D72.829 - Elevated white blood cell count, unspecified TAI LAZO APRN Apr 03, 2018 11:32 MIKIE KWON MD Apr 03, 2018 16:41
[2018-04-03 11:33] LABS: ALBUMIN 3.8 g/dL (3.4-5.0); ALBUMIN/GLOBULIN RATIO 0.9 (1.0-1.7); TOTAL BILIRUBIN 0.7 mg/dL (0.2-1.0); TOTAL PROTEIN 8.2 g/dL (6.4-8.2)
[2018-04-03] MEDS ORDERED: IOHEXOL 300 MG/ML 100ML VIAL. IV ONE (11:45)
[2018-04-03] MEDS ORDERED: CONTRAST GIVEN. MC PRN (11:45)
[2018-04-03 11:58] LABS: INFLUENZA A PATIENT NEGATIVE (NEGATIVE); INFLUENZA B PATIENT NEGATIVE (NEGATIVE)
--- NOTE | 2018-04-03 12:27 | RAD ---
CT ABD PELV W/ IV CONTRST ONLY Indication: ABD PAIN, N/.V. IV OMNI 300 75 MLS. PREVIOUS Exposure: One or more of the following individualized dose reduction techniques were utilized for this examination: 1. Automated exposure control 2. Adjustment of the mA and/or kV according to patient size 3. Use of iterative reconstruction technique. Comparison: November 08, 2016 Contrast: Intravenous contrast was given. No oral contrast per request. FINDINGS: Lower thorax: Lung bases are clear. Liver: Unremarkable Spleen: Unremarkable, small accessory splenule Pancreas: Unremarkable Adrenals: No evidence of mass. Kidneys: Small hypodense lesions of both kidneys appear roughly similar as prior study, measuring up to 12 mm on the right and most compatible with cysts. Urinary tracts: No hydronephrosis. Gallbladder: No calcified stone Lymph nodes: No significant enlargement Vessels: Aorta is nonaneurysmal. GI tract: No evidence of acute colitis. No evidence of bowel obstruction. Appendix is probably visualized and unremarkable. Reproductive organs:No evidence of mass. Urinary bladder: Unremarkable. Peritoneum: No evidence of pneumoperitoneum. No free fluid. Abdominal wall:Unremarkable Spine: Vertebral body height and alignment are intact. Bones: No destructive process identified. There is some soft tissue density in the left breast region, not seen on the right, but this could just be positional asymmetry. IMPRESSION: 1. No acute findings in the abdomen or pelvis. 2. No small renal lesions are essentially unchanged and most likely cysts. 3. Asymmetric density in the left breast tissue is partially visualized. This is not seen on the right, which could just be due to positional asymmetry, but correlate clinically for mass. Electronically signed by: Orlando Brizuela MD (04/03/2018 12:23 PM) [id number]
[2018-04-03 12:48] LABS: % BANDS 1 % (0-9); % LYMPHS 10 % (24-48); % MONOS 4 % (0-10); % SEGS 85 % (35-66); PLT ESTIMATE ADEQUATE (ADEQUATE)
[2018-04-03] MEDS ORDERED: DICY20TA3 PO (13:48)
[2018-04-03] MEDS ORDERED: ONDA4TAB10 SL (13:48)
[2018-04-03 16:05] VITALS: BP 120/57
== END 2018-04-03 13:55 | disposition home or self-care (01) ==
LOC: ER 09:47
DX: R10.13 Epigastric pain (principal); R11.2 Nausea with vomiting, unspecified; D72.829 Elevated white blood cell count, unspecified; R50.9 Fever, unspecified; Z88.8 Allergy status to other drugs, medicaments and biological substances
CPT/HCPCS: 36415; 74018; 74177; 80053; 80307; 81001; 83605; 83690; 85007; 85025; 87804; 96361; 96374; 96375; 99285; G0480; J2405; J3490; J7030; Q9967; G0479